=== PATIENT | female | born 1955 | race Caucasian/White ===

== ENCOUNTER 2025-06-08 17:01 | Emergency (ER) | payer OTHER, SELFPAY ==
[2025-06-08 17:06] VITALS: BP 149/82
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
== END 2025-06-08 21:18 | disposition home or self-care (01) ==
LOC: EMR 17:01
PROVIDERS: EMERGENCY PHYSICIAN Emergency Medicine; FAMILY PHYSICIAN Internal Medicine
DX: S09.90XA Unspecified injury of head, initial encounter (principal); W10.9XXA Fall (on) (from) unspecified stairs and steps, initial encounter
CPT/HCPCS: 99284; 70450

== ENCOUNTER 2025-08-19 17:01 | Emergency (ER) | payer OTHER, SELFPAY ==
[2025-08-19 17:05] VITALS: BP 146/90
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
[2025-08-19 18:50] VITALS: BMI 35.4
[2025-08-19 18:53] VITALS: BP 149/91
== END 2025-08-19 19:42 | disposition home or self-care (01) ==
LOC: EMR 17:01
PROVIDERS: EMERGENCY PHYSICIAN Emergency Medicine; FAMILY PHYSICIAN Internal Medicine
DX: S62.501A Fracture of unspecified phalanx of right thumb, initial encounter for closed fracture (principal); V89.2XXA Person injured in unspecified motor-vehicle accident, traffic, initial encounter; Y92.410 Unspecified street and highway as the place of occurrence of the external cause; E11.9 Type 2 diabetes mellitus without complications; G20.A1 Parkinson's disease without dyskinesia, without mention of fluctuations
CPT/HCPCS: 99284; 29125; 70450; 73110; 73140